=== PATIENT | female | born 1960 | race Caucasian/White ===

== ENCOUNTER 2017-11-30 13:08 | Inpatient (IN) | payer OTHER ==
--- NOTE | 2017-11-30 14:34 | NUR ---
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 Patient appears intoxicated, anxious, agitated, complaining of back pain, muscle aches, flushed face noted, tremors to touch and avoidant to eye contact. Admitting vital signs are as follows, BP is 142/75, HR 89, temperature 98.8, respirations 18, Spo2 95% on room air, pain of 7/10 on patient's back. Patient did not bring any home medications with her but she reported taking the following home medications: Synthroid 125mg PO QD, Lexapro 40mg PO QD, Wellbutrin 125mg PO QD and Estrogen/progesterone/testosterone with unspecified dose. Educated patient regarding unit protocol and policies, patient verbalized understanding. Will continue with further assessment when patient is up on the unit.
[2017-11-30] MEDS ORDERED: ACETAMINOPHEN 325 MG TABLET PO PRN (15:45)
[2017-11-30] MEDS ORDERED: MAG HYDROX/AL HYDROX/SIMETH 30 ML LIQUID UDC PO PRN (15:45)
[2017-11-30] MEDS ORDERED: LOPERAMIDE HCL 2 MG CAPSULE PO PRN ×2 (15:45)
[2017-11-30] MEDS ORDERED: IBUPROFEN 400 MG TABLET PO PRN (15:45)
[2017-11-30] MEDS ORDERED: CLONIDINE HCL 0.1 MG TABLET PO PRN (15:45)
[2017-11-30] MEDS ORDERED: LORAZEPAM 1 MG TABLET PO PRN ×2 (15:45)
[2017-11-30] MEDS ORDERED: MAGNESIUM HYDROXIDE 30 ML LIQUID UDC PO PRN (15:45)
[2017-11-30] MEDS ORDERED: ONDANSETRON ODT 4 MG TAB.RAPDIS SL PRN (15:45)
[2017-11-30] MEDS ORDERED: LORAZEPAM 2 MG/1 ML VIAL IM PRN (15:45)
[2017-11-30] MEDS ORDERED: THIAMINE HCL 200 MG/2 ML VIAL IM ONE (15:45)
[2017-11-30] MEDS ORDERED: ONDANSETRON 4 MG/2 ML VIAL IM PRN (15:45)
[2017-11-30] MEDS ORDERED: ONDANSETRON HCL 4 MG TABLET PO PRN (15:45)
[2017-11-30] MEDS ORDERED: diphenhydrAMINE 50 MG CAPSULE PO PRN (15:45)
[2017-11-30] MEDS ORDERED: MIRALAX 17 GM POWD.PACK PO PRN (15:45)
[2017-11-30] MEDS ORDERED: PROMETHAZINE HCL 25 MG TABLET PO PRN (15:45)
[2017-11-30] MEDS ORDERED: HYDROXYZINE PAMOATE 25 MG CAPSULE PO PRN (15:45)
[2017-11-30] MEDS ORDERED: DICYCLOMINE HCL 20 MG TABLET PO PRN (15:45)
--- NOTE | 2017-11-30 16:18 | NUR ---
Nurse note; Patient did not complete admission process and was not cleared to go up in the unit. Patient decided to not continue with treatment per Intake Counter Weigher.
[2017-11-30] MEDS ORDERED: MAGNESIUM CHLORIDE 64 MG TABLET.SA PO SCH (21:00)
[2017-12-01] MEDS ORDERED: THIAMINE HCL 100 MG TABLET PO SCH (09:00)
[2017-12-01] MEDS ORDERED: MULTIVITAMINS,THERAPEUTIC TABLET PO SCH (09:00)
[2017-12-01] MEDS ORDERED: FOLIC ACID 1 MG TABLET PO SCH (09:00)
[2017-12-01] MEDS ORDERED: TUBERCULIN,PURIF.PROT.DERIV. 5 TU/0.1 ML TEST ID ONE (09:00)
[2017-12-01] MEDS ORDERED: DOCUSATE SODIUM 250 MG CAPSULE PO SCH (09:00)
== END 2017-11-30 17:46 | disposition left against medical advice (07) | DRG 894 ==
LOC: SRC 13:40
PROVIDERS: ADMIT Internal Medicine; ATTEND Internal Medicine
DX: F10.239 Alcohol dependence with withdrawal, unspecified (principal); Z75.3 Unavailability and inaccessibility of health-care facilities; Y90.9 Presence of alcohol in blood, level not specified

== ENCOUNTER 2018-10-09 14:36 | Outpatient (CLI) | payer BC, OTHER ==
[2018-10-09 16:32] LABS: BASOPHILS % (AUTO) 0.6 % (0.0-2.0); EOSINOPHILS # (AUTO) 0.2 K/uL (0.0-0.7); EOSINOPHILS % (AUTO) 2.6 % (0.0-7.0); HEMATOCRIT 37.7 % (31.2-41.9); HEMOGLOBIN 12.6 g/dL (10.9-14.3); LYMPHOCYTES # (AUTO) 2.1 K/uL (20.0-40.0); LYMPHOCYTES % (AUTO) 33.4 % (20.5-51.5); MEAN CORPUSCULAR HEMOGLOBIN 29.5 uug (24.7-32.8); MEAN CORPUSCULAR HGB CONC 34 g/dL (32.3-35.6); MONOCYTES # (AUTO) 0.6 K/uL (2.0-10.0); MONOCYTES % (AUTO) 9.8 % (0.0-11.0); NEUTROPHILS # (AUTO) 3.4 K/uL (1.8-8.9); NEUTROPHILS % (AUTO) 53.6 % (38.5-71.5); PLATELET COUNT (AUTO) 323 K/uL (179-408); RED BLOOD CELL COUNT(AUTO) 4.28 MIL/uL (3.63-4.92); WHITE BLOOD COUNT (AUTO) 6.2 K/uL (3.8-11.8)
[2018-10-09 16:45] LABS: ALANINE AMINOTRANSFERASE 56 U/L (14-59); ALKALINE PHOSPHATASE 106 U/L (50-136); ASPARTATE AMINOTRANSFERASE 30 U/L (15-37); BILIRUBIN,TOTAL 0.4 mg/dL (0.2-1.0); CARBON DIOXIDE 28 mmol/L (21-32); CHLORIDE 102 mmol/L (98-107); CHOLESTEROL 190 mg/dL (<200); CREATININE 1.1 mg/dL (0.6-1.3); GLUCOSE 103 mg/dL (74-106); HDL CHOLESTEROL 60 mg/dL (40-60); POTASSIUM 3.7 mmol/L (3.5-5.1); TOTAL PROTEIN, SERUM 7.4 g/dL (6.4-8.2); TRIGLYCERIDES 96 MG/DL (30-150); UREA NITROGEN, BLOOD 14 mg/dL (7-18)
[2018-10-09 18:06] LABS: THYROID STIMULATING HORMONE < 0.007 mIU/mL (0.358-3.740)
[2018-10-11 08:06] LABS: *TESTOSTERONE, SERUM <3 ng/dL (3-41); CORTISOL 3.6 ug/dL (.); ESTRADIOL <6.0 pg/mL (.); FOLLICLE STIMULATION HORMONE 109.3 mIU/mL (.); PROGESTERONE <0.1 ng/mL (.)
== END 2018-10-09 23:59 | disposition home or self-care (01) ==
LOC: LAB 14:36
DX: N95.1 Menopausal and female climacteric states (principal); E34.9 Endocrine disorder, unspecified; E27.40 Unspecified adrenocortical insufficiency; R73.09 Other abnormal glucose; E55.9 Vitamin D deficiency, unspecified; E03.8 Other specified hypothyroidism; L65.9 Nonscarring hair loss, unspecified
CPT/HCPCS: 36415; 70030-TC; 82533; 82670; 83001; 84305; 84402; 84403; 84443; 84480; 85025

== ENCOUNTER 2019-11-05 08:26 | Outpatient (CLI) | payer BC, OTHER ==
[2019-11-06 05:07] LABS: HEPATITIS B SURFACE AB Reactive (.)
[2019-11-07 00:07] LABS: NEISSERIA GONORRHOEAE NAA Negative (Negative)
[2019-11-08 21:08] LABS: HERPES SIMPLEX VIRUS 1& 2 IGM <0.91 Ratio (0.00-0.90)
== END 2019-11-05 23:59 | disposition home or self-care (01) ==
LOC: LAB 08:26
PROVIDERS: ATTEND Family Medicine
DX: Z11.59 Encounter for screening for other viral diseases (principal); Z11.3 Encounter for screening for infections with a predominantly sexual mode of transmission
CPT/HCPCS: 36415; 86592; 86631; 86694; 86706; 86803; 87491; 87591; 87806

== ENCOUNTER 2020-03-29 14:50 | Outpatient (CLI) | payer BC, OTHER ==
[2020-03-29 15:21] LABS: BASOPHILS % (AUTO) 0.6 % (0.0-2.0); EOSINOPHILS # (AUTO) 0.1 K/uL (0.0-0.7); EOSINOPHILS % (AUTO) 1.3 % (0.0-7.0); HEMOGLOBIN 13.4 g/dL (10.9-14.3); LYMPHOCYTES # (AUTO) 2.7 K/uL (20.0-40.0); LYMPHOCYTES % (AUTO) 35.5 % (20.5-51.5); MEAN CORPUSCULAR HEMOGLOBIN 29.2 uug (24.7-32.8); MEAN CORPUSCULAR HGB CONC 34 g/dL (32.3-35.6); MEAN CORPUSCULAR VOLUME 87.1 fL (75.5-95.3); MONOCYTES # (AUTO) 0.4 K/uL (2.0-10.0); MONOCYTES % (AUTO) 5.9 % (0.0-11.0); NEUTROPHILS # (AUTO) 4.3 K/uL (1.8-8.9); NEUTROPHILS % (AUTO) 56.7 % (38.5-71.5); PLATELET COUNT (AUTO) 333 K/uL (179-408); RED BLOOD CELL COUNT(AUTO) 4.59 MIL/uL (3.63-4.92); WHITE BLOOD COUNT (AUTO) 7.6 K/uL (3.8-11.8)
[2020-03-29 15:35] LABS: BILIRUBIN,TOTAL 0.6 mg/dL (0.2-1.0); CREATININE 0.8 mg/dL (0.6-1.3); POTASSIUM 3.9 mmol/L (3.5-5.1); TOTAL PROTEIN, SERUM 7.4 g/dL (6.4-8.2)
[2020-03-29 16:43] LABS: THYROID STIMULATING HORMONE 0.008 mIU/mL (0.358-3.740)
[2020-03-31 09:18] LABS: CORTISOL 7.3 ug/dL (.)
[2020-03-31 10:25] LABS: *TESTOSTERONE, SERUM 18 ng/dL (3-41); ESTRADIOL 11.9 pg/mL (.); PROGESTERONE 0.1 ng/mL (.); TRIIODOTHYRONINE, FREE 3.2 pg/mL (2.0-4.4)
[2020-04-01 20:06] LABS: INSULIN-LIKE GROWTH FACTOR 108 ng/mL (46-172)
[2020-04-03 01:05] LABS: *VITAMIN D 25-OH VIT D 30 ng/mL (.); *VITAMIN D 25-OH, D2 6.8 ng/mL (.); *VITAMIN D 25-OH, D3 23 ng/mL (.)
[2020-04-05 11:09] LABS: TEST, %FREE+WK BOUND 6.1 % (3.0-18.0); TEST, FREE+WK BOUND 1.1 ng/dL (0.0-9.5)
== END 2020-03-29 23:59 | disposition home or self-care (01) ==
LOC: LAB 14:50
PROVIDERS: ATTEND Family Medicine
DX: E03.8 Other specified hypothyroidism (principal); E23.0 Hypopituitarism; E55.9 Vitamin D deficiency, unspecified; L65.9 Nonscarring hair loss, unspecified; N95.1 Menopausal and female climacteric states; E34.9 Endocrine disorder, unspecified; R73.09 Other abnormal glucose; R53.83 Other fatigue; E27.40 Unspecified adrenocortical insufficiency
CPT/HCPCS: 36415; 70030-TC; 82533; 82670; 83001; 84305; 84402; 84403; 84443; 84481; 85025